=== PATIENT | male | born 2000 | race Caucasian/White ===

== ENCOUNTER 2024-11-29 12:02 | Inpatient (IN) | payer OTHER ==
[~2024-11-29] VITALS: Ht 180.3 cm; Wt 86.2 kg
[2024-11-29] MEDS ORDERED: ACETAMINOPHEN 325 MG TABLET PO PRN ×2 (13:15→17:15)
[2024-11-29] MEDS ORDERED: MELATONIN 5 MG TABLET PO PRN (13:15)
[2024-11-29 14:35] VITALS: BP 135/85; PULSE 69; RESP 19; TEMP 98.1; O2SAT 98
[2024-11-29] MEDS ORDERED: GABAPENTIN 300 MG CAPSULE PO SCH ×2 (16:00)
[2024-11-29] MEDS: GABAPENTIN 300 MG CAPSULE PO SCH (16:51)
[2024-11-29 17:12] VITALS: O2SAT 98
[2024-11-29] MEDS: ACETAMINOPHEN 325 MG TABLET PO SCH (18:12)
[2024-11-29 20:00] VITALS: BP 111/80; PULSE 74; RESP 18; TEMP 97.7; O2SAT 99
[2024-11-29] MEDS: GABAPENTIN 400 MG CAPSULE PO SCH (20:52)
[2024-11-29] MEDS: CLOTRIMAZOLE 1% 15 GM CREAM TP SCH (20:53)
[2024-11-30 08:00] VITALS: BP 131/70; PULSE 73; RESP 19; TEMP 97.5; O2SAT 98
[2024-11-30 08:01] LABS: PLATELET COUNT (AUTO) 276 K/uL (150-450); RED BLOOD CELL COUNT(AUTO) 5.10 MIL/uL (4.50-5.90); RED CELL DISTRIBUTION WIDTH 12.9 % (11.5-14.5); WHITE BLOOD COUNT (AUTO) 6.4 K/uL (4.5-11.0)
[2024-11-30] MEDS: ENOXAPARIN SODIUM 40 MG/0.4 ML PF SYRINGE SQ SCH (08:02)
[2024-11-30] MEDS: GABAPENTIN 300 MG CAPSULE PO SCH (08:03)
[2024-11-30] MEDS: MAGNESIUM OXIDE 400 MG TABLET PO SCH (08:03)
[2024-11-30] MEDS: LIDOCAINE 5% 36 GM OINTMENT TP SCH (08:07)
[2024-11-30 08:17] LABS: ASPARTATE AMINOTRANSFERASE 27 U/L (15-37); CALCIUM, TOTAL 8.9 mg/dL (8.8-10.5); CREATININE 1.06 mg/dL (0.60-1.30); GLOMERULAR FILTR. RATE CALC > 60 mL/min (>60); GLUCOSE,RANDOM 81 mg/dL (70-110); SODIUM SERUM 141 mmol/L (136-145); TOTAL PROTEIN, SERUM 7.2 g/dL (6.4-8.2); UREA NITROGEN, BLOOD 15 mg/dL (7-18)
[2024-11-30 15:16] LABS: APPEARANCE,URINE CLEAR (CLEAR); GLUCOSE, URINE (UA) NEGATIVE (NEGATIVE); LEUKOCYTE ESTERASE ,URINE NEGATIVE (NEGATIVE); NITRATE,URINE NEGATIVE (NEGATIVE); OCCULT BLOOD,URINE NEGATIVE (NEGATIVE); SPECIFIC GRAVITIY, URINE 1.026 (1.003-1.030)
[2024-11-30 15:34] LABS: SQUAMOUS EPITHELIAL CELL,UR Rare /LPF (None Seen)
[2024-11-30 20:45] VITALS: BP 138/75; PULSE 93; RESP 18; TEMP 98.2; O2SAT 97
[2024-12-01 08:10] VITALS: BP 112/56; PULSE 66; RESP 18; TEMP 97.9; O2SAT 98
[2024-12-01] MEDS: GABAPENTIN 300 MG CAPSULE PO SCH (08:54)
[2024-12-01 10:30] VITALS: O2SAT 98
[2024-12-01 20:20] VITALS: BP 119/77; PULSE 68; RESP 18; TEMP 98.8; O2SAT 98
[2024-12-01 23:32] VITALS: O2SAT 98
[2024-12-02 08:00] VITALS: BP 136/78; PULSE 75; TEMP 97.9; O2SAT 98
[2024-12-02] MEDS: APIXABAN 5 MG TABLET PO SCH (11:51)
[2024-12-02 20:01] VITALS: BP 136/61; PULSE 74; RESP 18; TEMP 97.5; O2SAT 98
[2024-12-02 22:00] VITALS: O2SAT 98
[2024-12-03] MEDS: ACETAMINOPHEN 325 MG TABLET PO PRN (03:39)
[2024-12-03 08:00] VITALS: BP 118/61; PULSE 60; RESP 18; TEMP 97.7; O2SAT 98
[2024-12-03] MEDS: ACETAMINOPHEN 325 MG TABLET PO SCH (12:47)
[2024-12-03 20:00] VITALS: BP 131/78; PULSE 75; RESP 18; TEMP 98.2; O2SAT 99
[2024-12-04 08:00] VITALS: BP 128/75; PULSE 72; RESP 18; TEMP 98.3; O2SAT 100
[2024-12-04 20:22] VITALS: BP 124/76; PULSE 72; RESP 18; TEMP 98; O2SAT 99
[2024-12-04 21:59] VITALS: O2SAT 99
[2024-12-05 08:00] VITALS: BP 117/67; PULSE 80; RESP 17; TEMP 98.2; O2SAT 97
[2024-12-05] MEDS: ETHYL ALCOHOL 62% ANTISEPTIC NASAL SANITIZER 0.6 ML AMPUL NASAL SCH (08:44)
[2024-12-05 10:53] VITALS: O2SAT 97
[2024-12-05 19:48] VITALS: BP 118/76; PULSE 77; RESP 18; TEMP 98.2; O2SAT 97
[2024-12-06 00:06] VITALS: O2SAT 97
[2024-12-06 08:00] VITALS: BP 124/59; PULSE 69; RESP 19; TEMP 97.7; O2SAT 100
[2024-12-06 20:00] VITALS: BP 124/65; PULSE 85; RESP 18; TEMP 97.8; O2SAT 99
[2024-12-07 08:00] VITALS: BP 113/69; PULSE 70; RESP 19; TEMP 97.7; O2SAT 99
[2024-12-07 20:00] VITALS: BP 118/77; PULSE 80; RESP 18; TEMP 98.6; O2SAT 98
[2024-12-08 08:30] VITALS: BP 129/57; PULSE 68; RESP 18; TEMP 97.9; O2SAT 100
[2024-12-08 09:00] VITALS: O2SAT 100
[2024-12-08 20:52] VITALS: BP 128/69; PULSE 85; RESP 18; TEMP 98.1; O2SAT 98
[2024-12-09 01:14] VITALS: O2SAT 98
[2024-12-09] MEDS ORDERED: GABA-1181 PO ×2 (04:44→10:03)
[2024-12-09] MEDS ORDERED: GABA-1201 PO (04:44)
[2024-12-09] MEDS ORDERED: MAGN400T57 PO ×2 (04:49→10:03)
[2024-12-09] MEDS ORDERED: APIX5TAB PO ×2 (04:49→10:03)
[2024-12-09 08:00] VITALS: BP 117/62; PULSE 67; RESP 18; TEMP 97.9; O2SAT 98
[2024-12-09] MEDS: APIXABAN 5 MG TABLET PO SCH (08:38)
[2024-12-09] MEDS ORDERED: APIXABAN 5 MG TABLET PO SCH (09:00)
[2024-12-09] MEDS ORDERED: ACET-3862 PO (10:03)
[2024-12-09] MEDS ORDERED: LID5O TP (10:03)
== END 2024-12-09 13:21 | disposition home or self-care (01) | DRG 92 ==
LOC: 2WR 14:29
PROVIDERS: ADMIT Physical Medicine & Rehabilitation; ATTEND Physical Medicine & Rehabilitation
DX: R29.818 Other symptoms and signs involving the nervous system (principal); G82.20 Paraplegia, unspecified; I82.441 Acute embolism and thrombosis of right tibial vein; R32 Unspecified urinary incontinence; R53.1 Weakness; M54.50 Low back pain, unspecified; R26.9 Unspecified abnormalities of gait and mobility; R30.0 Dysuria; R53.83 Other fatigue; I82.461 Acute embolism and thrombosis of right calf muscular vein; G56.21 Lesion of ulnar nerve, right upper limb; Z74.09 Other reduced mobility; Z79.899 Other long term (current) drug therapy
CPT/HCPCS: 80053; 81001; 85025; 87081; 93970; 97110; 97112; 97116; 97163; 97167; 97530; 97535; 99366; J1650